=== PATIENT | male | born 1960 | race Caucasian/White ===

== ENCOUNTER 2020-05-19 01:24 | Inpatient (IN) ==
[2020-05-19] MEDS ORDERED: ASPIRIN 325 MG TABLET PO STA (01:33)
[2020-05-19 01:45] LABS: Basophils % 0.3 % (0.0-0.8); Eosinophils # 0.3 10*3/uL (0.0-0.87); Eosinophils % 2.5 % (0.00-10.9); Hematocrit 38.6 VOL% (42.0-52.0); Immature Granulocytes % 0.3 %; Immature Granulocytes Absolute 0.04 #; Lymphocytes # 4.4 10*3/uL (1.4-4.0); Lymphocytes % 34.2 % (21.2-54.2); Mean Corpuscular HGB Conc 33.7 GM/DL (32-36); Mean Corpuscular Volume 87.9 FL (87-102); Mean Platelet Volume 10.1 FL (9.6-12.0); Monocytes % 7.4 % (1.7-12.7); Neutrophils % 55.3 % (38.7-73.9); Platelet Count 288 T/CUMM (130-400); Red Blood Count 4.39 MC/CUMM (3.8-5.5); Red Cell Distribution Width 13.6 % (9.3-17.3); White Blood Count 12.8 T/CUMM (4-12)
[2020-05-19] MEDS ORDERED: NITROGLYCERIN SL 0.4 MG TABLET SL PRN ×2 (01:46→04:22)
[2020-05-19] MEDS ORDERED: MORPHINE 4 MG/1 ML VIAL IV STA ×2 (01:46→02:18)
[2020-05-19] MEDS ORDERED: ONDANSETRON 4 MG/2 ML VIAL IV ONE (01:46)
[2020-05-19 01:56] LABS: INR 1.1; PT Patient Result 11.4 SECS (9.8-11.9)
[2020-05-19 02:07] LABS: Bilirubin,Total 0.7 MG/DL (0.2-1.0); Calcium 9.5 MG/DL (8.5-10.1); Total Protein 7.3 G/DL (6.4-8.3)
[2020-05-19] MEDS ORDERED: ENOXAPARIN 30 MG/0.3 ML SYRINGE SUBCUT STA (02:11)
[2020-05-19] MEDS ORDERED: NITROGLYCERIN SL 0.4 MG TABLET SL STA ×2 (02:17→02:18)
[2020-05-19] MEDS ORDERED: CLOPIDOGREL 75 MG TABLET PO STA (02:31)
[2020-05-19] MEDS ORDERED: TICAGRELOR 90 MG TABLET PO STA (02:32)
[2020-05-19] MEDS ORDERED: HEPARIN/NACL 0.9% 2 UNITS/ML 1,500 ML IV ONE (03:06)
[2020-05-19] MEDS ORDERED: LIDOCAINE 1% 20 ML VIAL ONE (03:06)
[2020-05-19] MEDS ORDERED: fentaNYL 100 MCG/2 ML VIAL ONE (03:13)
[2020-05-19] MEDS ORDERED: MIDAZOLAM 2 MG/2 ML VIAL ONE ×2 (03:13→03:57)
[2020-05-19] MEDS ORDERED: NITROGLYCERIN DRIP 50 MG/250 ML BOTTLE IV ONE (03:52)
[2020-05-19] MEDS ORDERED: ACETAMINOPHEN 325 MG TABLET PO PRN (04:21)
[2020-05-19] MEDS ORDERED: diphenhydrAMINE CAP 25 MG CAPSULE PO PRN (04:21)
[2020-05-19] MEDS ORDERED: SODIUM CHLORIDE 0.9% 1,000 ML IV SCH (04:30)
[2020-05-19] MEDS: MULTIVITAMIN (CENTRUM) TABLET PO SCH (08:19)
[2020-05-19] MEDS: ASPIRIN EC 81 MG TABLET PO SCH (08:20)
[2020-05-19] MEDS: ATORVASTATIN 40 MG TABLET PO SCH (08:20)
[2020-05-19] MEDS: PANTOPRAZOLE 40 MG TABLET PO SCH (08:20)
[2020-05-19] MEDS: TICAGRELOR 90 MG TABLET PO SCH ×2 (08:20→21:44)
[2020-05-19] MEDS: carvediloL 6.25 MG TABLET PO SCH ×2 (08:20→18:02)
[2020-05-19 08:26] LABS: Troponin I 53.6 NG/ML (0.00-0.045)
[2020-05-20 06:08] LABS: Basophils % 0.3 % (0.0-0.8); Eosinophils # 0.4 10*3/uL (0.0-0.87); Eosinophils % 3.3 % (0.00-10.9); Hematocrit 33.6 VOL% (42.0-52.0); Hemoglobin 11.2 GM/DL (14.0-18.0); Immature Granulocytes % 0.3 %; Immature Granulocytes Absolute 0.03 #; Lymphocytes # 4.3 10*3/uL (1.4-4.0); Lymphocytes % 40.7 % (21.2-54.2); Mean Corpuscular HGB Conc 33.3 GM/DL (32-36); Mean Corpuscular Volume 88.9 FL (87-102); Mean Platelet Volume 10.2 FL (9.6-12.0); Monocytes % 10.1 % (1.7-12.7); Neutrophils % 45.3 % (38.7-73.9); Platelet Count 235 T/CUMM (130-400); Red Blood Count 3.78 MC/CUMM (3.8-5.5); Red Cell Distribution Width 13.8 % (9.3-17.3); White Blood Count 10.6 T/CUMM (4-12)
[2020-05-20 06:26] LABS: Calcium 8.3 MG/DL (8.5-10.1); Osmolality,Calculated 275.5 MOS/KG (273-304)
[2020-05-20 06:42] LABS: CKMB % 3.9 %
[2020-05-20 06:43] LABS: Troponin I 34.8 NG/ML (0.00-0.045)
[2020-05-20] MEDS: carvediloL 6.25 MG TABLET PO SCH ×2 (07:57→16:19)
[2020-05-20] MEDS: ASPIRIN EC 81 MG TABLET PO SCH (09:00)
[2020-05-20] MEDS: TICAGRELOR 90 MG TABLET PO SCH ×2 (09:00→21:39)
[2020-05-20] MEDS: MULTIVITAMIN (CENTRUM) TABLET PO SCH (09:00)
[2020-05-20] MEDS: ATORVASTATIN 40 MG TABLET PO SCH (09:00)
[2020-05-20] MEDS: PANTOPRAZOLE 40 MG TABLET PO SCH (09:00)
[2020-05-20 12:49] LABS: Eosinophils 2 % (0-10); Lymphocytes 38 % (20-55); Segmented Neutrophils 54 % (50-85); Total Cells Counted 100
[2020-05-20 12:51] LABS: Ovalocytes Few; Platelet Estimate Adequate; Polychromasia Slight
[2020-05-21 06:08] LABS: Basophils # 0.1 10*3/uL (0.0-0.2); Basophils % 0.5 % (0.0-0.8); Eosinophils # 0.3 10*3/uL (0.0-0.87); Hematocrit 33.5 VOL% (42.0-52.0); Hemoglobin 11.3 GM/DL (14.0-18.0); Immature Granulocytes % 0.3 %; Immature Granulocytes Absolute 0.03 #; Lymphocytes # 4.2 10*3/uL (1.4-4.0); Mean Corpuscular HGB Conc 33.7 GM/DL (32-36); Mean Corpuscular Volume 87.2 FL (87-102); Mean Platelet Volume 10.4 FL (9.6-12.0); Monocytes % 10.4 % (1.7-12.7); Neutrophils % 47.8 % (38.7-73.9); Platelet Count 227 T/CUMM (130-400); Red Blood Count 3.84 MC/CUMM (3.8-5.5); Red Cell Distribution Width 14.1 % (9.3-17.3)
[2020-05-21 06:26] LABS: Osmolality,Calculated 277.4 MOS/KG (273-304)
[2020-05-21 06:30] LABS: Atypical Lymphocytes Few; Eosinophils 1 % (0-10); Hypochromasia 1+; Lymphocytes 42 % (20-55); Segmented Neutrophils 49 % (50-85); Total Cells Counted 100
[2020-05-21 06:31] LABS: Microcytosis 1+; Platelet Estimate Normal
[2020-05-21 07:51] LABS: CKMB % 1.3 %
[2020-05-21 07:52] LABS: Troponin I 18.4 NG/ML (0.00-0.045)
[2020-05-21] MEDS ORDERED: LOSARTAN 50 MG TABLET PO SCH (09:00)
[2020-05-21 09:01] VITALS: BP 131/79
[2020-05-21] MEDS: MULTIVITAMIN (CENTRUM) TABLET PO SCH (09:02)
[2020-05-21] MEDS: ASPIRIN EC 81 MG TABLET PO SCH (09:03)
[2020-05-21] MEDS: carvediloL 6.25 MG TABLET PO SCH (09:03)
[2020-05-21] MEDS: TICAGRELOR 90 MG TABLET PO SCH (09:03)
[2020-05-21] MEDS: PANTOPRAZOLE 40 MG TABLET PO SCH (09:10)
[2020-05-21] MEDS: ATORVASTATIN 40 MG TABLET PO SCH (09:10)
[2020-05-21 10:33] LABS: Risk Ratio 5.79; VLDL CHOLESTEROL 29.6 MG/DL
== END 2020-05-21 12:05 | disposition home or self-care (01) | DRG 247 ==
LOC: N.ED 01:24 → N.EDINP 04:07 → N.ICU 04:30 → N.TELES 15:17
PROVIDERS: ADMIT Internal Medicine Cardiovascular Disease; ATTEND Internal Medicine Cardiovascular Disease
PROC: CLCCHCL (ICD-10-PCS; 2020-05-19 07:15)